=== PATIENT | female | born 1985 | race Caucasian/White ===

== ENCOUNTER → 2020-06-21 | Outpatient (CLI) | payer MEDICAID ==
--- NOTE | 2020-07-02 15:52 | EM ---
EVENT MONITOR Event monitor shows sinus mechanism with normal heart rates. Occasional premature beats. No sustained or nonsustained arrhythmias. MMODL / IJN: [id number] /
== END | disposition home or self-care (01) ==
LOC: RADECHMAIN 12:09
PROVIDERS: ATTEND Family Medicine
DX: R00.2 Palpitations (principal)
CPT/HCPCS: 93270

== ENCOUNTER → 2020-09-18 | Outpatient (CLI) | payer MEDICAID ==
[2020-09-18 14:58] LABS: HCT 42.3 % (37.2-46.3); HGB 13.8 g/dL (12.0-15.0); MCH 27.6 pg (27.0-32.0); MCHC 32.6 g/dL (32.0-37.0); MCV 84.6 fL (80.0-97.0); Mean Platelet Volume 10.7 fL (9.5-12.2); Platelet Count 352 X 10*3/uL (140-440); RDW 12.6 % (11.5-14.5); WBC 10.76 X 10*3/uL (4.50-10.00)
[2020-09-19 02:10] LABS: African American GFR (CKD) 96.7 (60.0-200.0); Albumin 4.7 g/dL (3.80-4.90); Albumin/Globulin Ratio 1.62 (1.60-3.17); BUN/Creat Ratio 15.56 Ratio (12.00-20.00); Calcium 9.5 mg/dL (8.7-10.3); Chol/HDL Ratio 4.48; Globulin 2.9 g/dL (1.6-3.3); LDL Cholesterol,Calculated 142.6 mg/dL (0.0-131.0); Magnesium 1.8 mg/dL (1.5-2.4); Non-African American GFR(CKD) 83.4 (60.0-200.0); Potassium 4.5 mmol/L (3.5-5.5); Total Bilirubin 0.4 mg/dL (0.3-1.2); Total Protein 7.6 g/dL (6.2-8.2); VLDL Calculation 24.4 mg/dL (5.00-40.00)
== END | disposition home or self-care (01) ==
LOC: LABWHC1 09:38
PROVIDERS: ATTEND Nurse Practitioner Adult Health
DX: I10 Essential (primary) hypertension (principal); I49.3 Ventricular premature depolarization; E78.5 Hyperlipidemia, unspecified
CPT/HCPCS: 36415; 80053; 80061; 83735; 84443; 84481; 85027

== ENCOUNTER → 2020-10-23 | Outpatient (CLI) | payer MEDICAID ==
--- NOTE | 2020-10-23 14:08 | EST ---
EXERCISE STRESS DATE OF SERVICE: INDICATION: Chest pain. REFERRING: Dr. Joseph AGE: 34 SEX: F HT: @@ WT: @@ PROTOCOL: @@ STAGE: @@ DURATION OF EXERCISE: @@ HEART RATE REST: @@ BLOOD PRESSURE REST: @@ MAXIMUM HEART RATE ACHIEVED: @@ MAXIMUM BLOOD PRESSURE: @@ 85% MPHR: @@ 100% MPHR: @@ METS: @@ STRESS DATA: Heart rate is 88, pressure is 127/78 mmHg. Baseline EKG showed sinus mechanism. The patient exercised on the treadmill according to Zheng protocol for a total of 8 minutes and achieved 9.9 METS. Max heart rate was 172, which is about 92% of maximum predicted heart rate and maximum blood pressure was 153/85 mmHg. Clinically, the patient did not have any symptoms of chest pain or chest discomfort and the EKG did not show any significant ST or T-wave abnormalities concerning for ischemia and also the EKG did not show any evidence of cardiac ischemia. CONCLUSION: 1. Excellent exercise tolerance. 2. Normal EKG in response to exercise. 3. No evidence of any arrhythmia in response to exercise. 4. Good augmentation in the blood pressure and heart rate in response to exercise. 5. Essentially normal exercise treadmill stress test for the patient. MMODL / IJN: [id number] /
== END | disposition home or self-care (01) ==
LOC: RADNMMAIN 08:42
PROVIDERS: ATTEND Internal Medicine Clinical Cardiac Electrophysiology
DX: R07.9 Chest pain, unspecified (principal)
CPT/HCPCS: 93017

== ENCOUNTER → 2022-07-09 | Outpatient (CLI) | payer MEDICAID ==
[2022-07-09 22:33] LABS: HCT 39.1 % (37.2-46.3); HGB 12.4 g/dL (12.0-15.0); MCHC 31.7 g/dL (32.0-37.0); Mean Platelet Volume 10.6 fL (9.5-12.2); NRBC Per 100 WBC 0 /100 WBCS (0.0-0.0); Platelet Count 387 X 10*3/uL (140-440); RBC 4.77 X 10*6/uL (4.10-5.20); RDW 13.7 % (11.5-14.5); WBC 11.08 X 10*3/uL (4.50-10.00)
[2022-07-09 22:52] LABS: Follicle Stimulating Hormone 5.8 mIU/mL; Luteinizing Hormone 8.1 mIU/mL; T4, Free (Free Thyroxine) 1.12 ng/dL (0.800-1.800); Testosterone 49.8 ng/mL (9.01-47.94)
== END | disposition home or self-care (01) ==
LOC: LABWHC1 15:54
PROVIDERS: ATTEND Obstetrics & Gynecology Obstetrics
DX: E28.2 Polycystic ovarian syndrome (principal); E07.9 Disorder of thyroid, unspecified; N93.8 Other specified abnormal uterine and vaginal bleeding
CPT/HCPCS: 36415; 83001; 83002; 83036; 84403; 84439; 84443; 85027